=== PATIENT | male | born 1970 | race Hispanic/Latino ===

== ENCOUNTER 2024-09-23 21:06 | Emergency (ER) | payer SELFPAY ==
[~2024-09-23] VITALS: Ht 182.9 cm; Wt 99.8 kg
[2024-09-23] MEDS: teTANUS/diphthERIA TOXOID [ADULT] 0.5 ML VIAL IM ONE (21:36)
[2024-09-23 21:40] VITALS: BP 158/95; PULSE 92; RESP 18; TEMP 98.4; O2SAT 99
--- NOTE | 2024-09-23 22:07 | ERN ---
General Chief Complaint: Laceration/Avulsion Stated Complaint: LACERATION, LEFT WRIST Time Seen by MD: 21:11 Time Seen by Midlevel: 21:11 Source: patient History of Present Illness Initial Comments Patient is a 54-year-old male presenting to the emergency department for evaluation of a laceration to his left wrist. Patient states he was cutting trees down with a chainsaw when it accidentally slipped and cut his left wrist. The patient applied pressure and immediately report to the ER for further evaluation. Patient has no other complaints. Patient states his last tetanus vaccination was over 10 years ago. Allergies: Coded Allergies: No Known Allergies (Unverified Allergy, Unknown, 04/12/19) Past Medical History Past Medical History: Anxiety Past Surgical History: Appendectomy, Other Surgical History Other: LEFT 2ND FINGER ROS Dictation CONSTITUTIONAL: Negative except for HPI HEAD/FACE: Negative except for HPI EENT: Negative except for HPI RESPIRATORY: Negative except for HPI GASTROINTESTINAL/ABDOMINAL: Negative except for HPI GENITOURINARY: Negative except for HPI MUSCULOSKELETAL: Negative except for HPI INTEGUMENTARY: Negative except for HPI NEUROLOGICAL/PSYCH: Negative except for HPI HEMATOLOGIC/LYMPHATIC: Negative except for HPI All Systems Negative, Except as noted above. 13 point review of systems assessed and all negative except for above. Physical Exam Physical Exam Dictation PHYSICAL EXAM: GENERAL: alert,, awake oriented x 3 HEENT: EOMI, Sclera non icteric, moist mucosa NECK: Supple, no JVD, trachea midline LUNGS: Clear breath sounds bilaterally. No wheezes HEART: Regular rate and rhythm. Normal S1 and S2, without murmurs ABD: Abdomen soft, nontender. Bowel sounds present EXT: No clubbing or cyanosis, NEURO: Alert and oriented to person, follows commands SKIN: 7 cm laceration to the left anterior wrist, minimal active bleeding no foreign body visualized MDM MDM: Differential diagnosis: Laceration, contusion, abrasion There are no social concerns with this patient. Prescription drug management Prescriptions will include: Amoxicillin Medical management and examination interpretation discussions were had by me with other qualified healthcare professionals as indicated for the patient's care. ED Course Orders Procedure Category Date Status Time Tetanus,Diphtheria PHA 09/23/24 Complete Tox [Adult] (Diphther 21:30 Current Medications Medications (Trade) Dose Ordered Sig/Yefri Route PRN Reason Start Time Stop Time Status Last Admin Dose Admin Tetanus/ Diphtheria Toxoids Adsorbed (DiphthERIA-teTANUS TOXOID [ADULT]/ DECAVAC) 0.5 ml ONCE ONCE IM 09/23/24 21:30 09/23/24 21:31 DC 09/23/24 21:36 Vital Signs Date Time Temp Pulse Resp B/P (MAP) Pulse Ox O2 Delivery O2 Flow Rate FiO2 09/23/24 21:40 98.4 92 18 158/95 99 Room Air* 0 21 09/23/24 21:07 98.2 91 18 165/105 99 Room Air DX & DISP Disposition: Discharge Departure Impression: Primary Impression: Laceration of left wrist Condition: Stable Scripts Amoxicillin/Potassium Clav (Amox Tr-K Clv 875-125 mg Tab) 875 Mg-125 Mg Tablet 1 EACH PO BID for 5 Days, #10 TAB 0 Refills Prov: LORI WILLIAMSON 09/23/24 Additional Instructions: Seven sutures were placed. These will need to be removed in 7-10 days. You may return to the emergency department or follow up with your primary care doctor for suture removal. Please keep area clean and dry. If you notice any signs of infection please return to the ER for further evaluation. I have given you a prescription for oral antibiotics for outpatient management. Follow up with your primary care doctor in 24-48 hours for repeat evaluation. Referrals: SELF,REFERRAL (PCP) Time of Disposition: 22:02 I have reviewed the case, and I agree with, Diagnosis and Plan I performed the substantive portion of the visit. I have reviewed and personally made and approve the management plan that is documented in the note by myself or the CHRIS. I acknowledge for responsibility for the patient's management plan. LORI WILLIAMSON Sep 23, 2024 22:07
[2024-09-23] MEDS ORDERED: AMOX1TAB16 PO (22:11)
== END 2024-09-23 22:14 | disposition home or self-care (01) ==
LOC: EDH 21:06
DX: S61.512A Laceration without foreign body of left wrist, initial encounter (principal); Z90.49 Acquired absence of other specified parts of digestive tract; W27.0XXA Contact with workbench tool, initial encounter; Y93.89 Activity, other specified; Y92.89 Other specified places as the place of occurrence of the external cause; Y99.8 Other external cause status
CPT/HCPCS: 12002; 90471; 90714; 99284